=== PATIENT | male | born 1965 | race Caucasian/White ===

== ENCOUNTER → 2021-04-14 09:19 | Outpatient (CLI) | payer OTHER, SELFPAY ==
[2021-04-14 18:41] LABS: Add Manual Diff / Slide Review NO; Basophils Absolute Auto 0 /uL (0-100); Basophils Percent Auto 0.4 % (0-2); Eosinophils Absolute Auto 100 /uL (0-450); Eosinophils Percent Auto 1.2 % (2-4); Hematocrit 40.7 % (41-53); Hemoglobin 13.9 g/dL (13.5-17.5); Lymphocytes Absolute Auto 3000 /uL (1100-4500); Mean Corpuscular HGB Conc 34.1 % (30-36); Mean Corpuscular Hemoglobin 31.8 PG (26-34); Mean Corpuscular Volume 93.2 fL (80-100); Monocytes Absolute Auto 400 /uL (0-900); Monocytes Percent Auto 5.6 % (3-14); Neutrophils Absolute Auto 3000 /uL (1500-7000); Neutrophils Percent Auto 46.8 % (50-75); Platelet Count 188 X10^3/uL (150-400); Red Blood Cell Count 4.37 X10^6/uL (4.5-5.9); Red Cell Distribution Width 12.9 % (11.6-14.8); White Blood Cell Count 6.5 X10^3/uL (4.5-11.0)
[2021-04-14 19:12] LABS: Alanine Aminotransferase 26 IU/L (<50); Albumin 4.3 g/dL (3.5-5.0); Albumin Globulin Ratio 1.3 (1.0-2.8); Alkaline Phosphatase 67 U/L (38-126); Aspartate Aminotransferase 27 IU/L (17-59); BUN Creatinine Ratio 15.5 (6-22); Bilirubin Total 1.2 mg/dL (0.2-1.3); Blood Urea Nitrogen 16 mg/dL (9-20); Calcium 9.5 mg/dL (8.4-10.2); Carbon Dioxide 25 mmol/L (22-32); Chloride 108 mmol/L (98-107); Cholesterol 222 mg/dL (140-199); Estimated Glomerular Filt Rate > 60.0 mL/min (>60); Globulin 3.2 g/dL (1.7-4.1); Glucose 101 mg/dL (70-100); HDL Cholesterol 71 mg/dL (40-60); HEMOLYSIS < 15 (0-50); LDL Cholesterol Calculated 139 mg/dL (<100); Potassium 4.4 mmol/L (3.4-5.1); Sodium 140 mmol/L (137-145); Total Protein 7.5 g/dL (6.3-8.2); Triglycerides 62 mg/dL (35-150)
[2021-04-14 19:40] LABS: Prostate Specific Antigen 1.13 ng/mL (0.10-4.00)
== END ==
PROVIDERS: PCP Family Medicine; Visit Provider Family Medicine
DX: Z00.00 Encounter for general adult medical examination without abnormal findings (principal)
CPT/HCPCS: 80053; 80061; 84153; 85025

== ENCOUNTER 2022-03-31 10:17 | Emergency (ER) | payer OTHER, SELFPAY ==
[2022-03-31 10:47] VITALS: BP 106/63; PULSE 96; RESP 18; TEMP 37; O2SAT 98; BMI 29.5
[2022-03-31 10:59] VITALS: BP 106/63; PULSE 96; RESP 18; O2SAT 99
--- NOTE | 2022-03-31 13:03 | ED.BACK ---
HPI - Back Pain/Injury <CHIP García - Last Filed: 03/31/22 18:52> General Chief Complaint: Back Pain/Injury Stated Complaint: Back spasms Time Seen by Provider: 03/31/22 12:58 Source: patient and EMS History of Present Illness HPI Narrative: This is a 56-year-old gentleman who presents to the emergency department via EMS from [facility] for severe back spasms that started last night when he lifted up over his head in a twisting motion. He states that he immediately felt sharp pain and fell down to the ground. Try to rest overnight with ibuprofen and states that he had spasms all night long. He has severe pain and any movement triggers worsening spasms. He states it is worse on the left than the right. States he could not feel himself void this morning when he did. He denies numbness to his penis or anus, endorses that he has rectal tone. He states that he is had history of cervical spine fusion in the past and shoulder surgery but no other problems with his low back. He is not anticoagulated, states that he is otherwise healthy, his primary care provider is Dr. Alston. Related Data Previous Rx's Medication Instructions Recorded ketorolac 10 mg tablet 10 mg PO Q8H PRN pain #20 tabs 03/31/22 lidocaine 5 % topical patch 1 patch topical DAILY PRN back 03/31/22 (Lidoderm) pain #30 ea methocarbamol 750 mg tablet 750 mg PO Q8H PRN spasms #30 tabs 03/31/22 oxycodone-acetaminophen 5 mg-325 1 tab PO Q8H PRN pain #20 tabs 03/31/22 mg tablet (Percocet) polyethylene glycol 3350 17 17 g PO DAILY PRN soft stools #238 03/31/22 gram/dose oral powder (Miralax) grams prednisone 50 mg tablet 50 mg PO DAILY #10 tabs 03/31/22 Allergies Allergy/AdvReac Type Severity Reaction Status Date / Time No Known Drug Allergies Allergy Verified 04/02/21 09:24 Review of Systems <CHIP García - Last Filed: 03/31/22 18:52> Review of Systems ROS Unobtainable: All systems reviewed & are unremarkable except as noted in HPI and below Patient History <CHIP García - Last Filed: 03/31/22 18:52> Medical History Anemia GERD (gastroesophageal reflux disease) (~2020) Well adult exam Surgical History Anesthesia History of elbow surgery History of hand surgery History of neck surgery History of shoulder surgery Family History Mother COPD (chronic obstructive pulmonary disease) Social History Smoking Status: Former smoker Smoking Status: Former smoker Exam <CHIP García - Last Filed: 03/31/22 18:52> Narrative Exam Narrative: Reviewed vitals signs and nursing notes. General: cooperative, comfortable, in acute distress spasms in his whole back triggered movement, well groomed HEENT: symmetrical facial expressions, moist mucous membranes Cardiovascular: regular rate and rhythm, no peripheral edema, warm extremities Respiratory: normal effort, able to speak in complete sentences, without wheezing, stridor, or abnormal breath sounds. No retractions or tachypnea. GI: abdomen soft, nontender to palpation, nondistended, without masses, rebound tenderness or exquisite tenderness with exam. MSK: moves all extremities, neurovascularly intact, no weakness, normal tone, patient has exquisite tenderness and bilateral spasms to his back with any movement, weak dorsiflexion, groin numbness to palpation anteriorly, patient does have rectal tone tender over his L4-5 region diffusely Skin: brisk capillary refill, without pallor or erythema Neuro: normal speech and cognition, A&O x3, patient was able to stand and ambulate short distance after medications were given. Psych: mental status is grossly normal, congruent mood, normal affect, pleasant and cooperative Initial Vital Signs Initial Vital Signs: Vital Signs Temperature 98.6 F 03/31/22 10:47 Pulse Rate 96 H 03/31/22 10:47 Respiratory Rate 18 03/31/22 10:47 Blood Pressure 106/63 03/31/22 10:47 Pulse Oximetry 98 03/31/22 10:47 Oxygen Delivery Method 03/31/22 10:47 <Zenia Coelho DO - Last Filed: 03/31/22 19:20> Initial Vital Signs Initial Vital Signs: Vital Signs Temperature 98.6 F 03/31/22 10:47 Pulse Rate 96 H 03/31/22 10:47 Respiratory Rate 18 03/31/22 10:47 Blood Pressure 106/63 03/31/22 10:47 Pulse Oximetry 98 03/31/22 10:47 Oxygen Delivery Method 03/31/22 10:47 Course <CHIP García - Last Filed: 03/31/22 18:52> Orders Ordered: ED Orders 03/31/22 13:05 MR lumbar spine wo con Stat Discontinued Medications Acetaminophen (Acetaminophen 325 Mg Tablet) 975 mg PO NOW ONE Stop: 03/31/22 13:03 Last Admin: 03/31/22 14:06 Dose: 975 mg Documented By: AND[facility] Diazepam (Diazepam 10 Mg/2 Ml Syringe) 5 mg IV NOW ONE Stop: 03/31/22 13:03 Last Admin: 03/31/22 14:05 Dose: 5 mg Documented By: ANDERSON Hydromorphone HCl (Hydromorphone 0.5 Mg Inj) 0.5 mg IV NOW ONE Stop: 03/31/22 13:03 Last Admin: 03/31/22 14:05 Dose: 0.5 mg Documented By: AND[facility] Hydromorphone HCl (Hydromorphone 0.5 Mg Inj) 0.5 mg IV NOW ONE Stop: 03/31/22 14:58 Last Admin: 03/31/22 15:57 Dose: 0.5 mg Documented By: ANDERSON Ketorolac Tromethamine (Ketorolac 30 Mg/Ml Vial) 15 mg IV NOW ONE Stop: 03/31/22 13:03 Last Admin: 03/31/22 14:05 Dose: 15 mg Documented By: ANDERSON Lidocaine (Lidocaine Patch 1 Each Adh..Patch) 1 each TOP NOW ONE Stop: 03/31/22 13:03 Last Admin: 03/31/22 14:04 Dose: 1 each Documented By: ANDERSON Methocarbamol (Methocarbamol 500 Mg Tablet) 750 mg PO NOW ONE Stop: 03/31/22 14:58 Last Admin: 03/31/22 15:56 Dose: 750 mg Documented By: ANDERSON Methylprednisolone (Methylprednisolone 125 Mg/2 Ml Vial) 125 mg IV NOW ONE Stop: 03/31/22 15:27 Last Admin: 03/31/22 15:46 Dose: 125 mg Documented By: ANDERSON Oxycodone/Acetaminophen (Oxycodone/Acetaminophen 5/325 Tablet) 1 tab PO NOW ONE Stop: 03/31/22 15:28 Last Admin: 03/31/22 15:57 Dose: 1 tab Documented By: ANDERSON Vital Signs Vital signs: Vital Signs - 8 hr 03/31/22 18:21 Pulse Rate 77 Respiratory Rate 18 Blood Pressure 154/78 H Pulse Oximetry 99 Oxygen Delivery Method Room Air <Zenia Coelho DO - Last Filed: 03/31/22 19:20> Orders Ordered: ED Orders 03/31/22 13:05 MR lumbar spine wo con Stat Discontinued Medications Acetaminophen (Acetaminophen 325 Mg Tablet) 975 mg PO NOW ONE Stop: 03/31/22 13:03 Last Admin: 03/31/22 14:06 Dose: 975 mg Documented By: [facility] Diazepam (Diazepam 10 Mg/2 Ml Syringe) 5 mg IV NOW ONE Stop: 03/31/22 13:03 Last Admin: 03/31/22 14:05 Dose: 5 mg Documented By: ANDERSON Hydromorphone HCl (Hydromorphone 0.5 Mg Inj) 0.5 mg IV NOW ONE Stop: 03/31/22 13:03 Last Admin: 03/31/22 14:05 Dose: 0.5 mg Documented By: ANDERSON Hydromorphone HCl (Hydromorphone 0.5 Mg Inj) 0.5 mg IV NOW ONE Stop: 03/31/22 14:58 Last Admin: 03/31/22 15:57 Dose: 0.5 mg Documented By: ANDERSON Ketorolac Tromethamine (Ketorolac 30 Mg/Ml Vial) 15 mg IV NOW ONE Stop: 03/31/22 13:03 Last Admin: 03/31/22 14:05 Dose: 15 mg Documented By: ANDERSON Lidocaine (Lidocaine Patch 1 Each Adh..Patch) 1 each TOP NOW ONE Stop: 03/31/22 13:03 Last Admin: 03/31/22 14:04 Dose: 1 each Documented By: ANDERSON Methocarbamol (Methocarbamol 500 Mg Tablet) 750 mg PO NOW ONE Stop: 03/31/22 14:58 Last Admin: 03/31/22 15:56 Dose: 750 mg Documented By: ANDERSON Methylprednisolone (Methylprednisolone 125 Mg/2 Ml Vial) 125 mg IV NOW ONE Stop: 03/31/22 15:27 Last Admin: 03/31/22 15:46 Dose: 125 mg Documented By: ANDERSON Oxycodone/Acetaminophen (Oxycodone/Acetaminophen 5/325 Tablet) 1 tab PO NOW ONE Stop: 03/31/22 15:28 Last Admin: 03/31/22 15:57 Dose: 1 tab Documented By: ANDERSON Vital Signs Vital signs: Vital Signs - 8 hr 03/31/22 18:21 Pulse Rate 77 Respiratory Rate 18 Blood Pressure 154/78 H Pulse Oximetry 99 Oxygen Delivery Method Room Air MDM - Back Pain/Injury <Chanel Allison, [facility] - Last Filed: 03/31/22 18:52> Imaging Data Lumbar MRI: Radiologist's Impression: PROCEDURE:? MR LUMBAR SPINE WO CON ? INDICATIONS:? Groin paresthesia, for dorsiflexion, disc injury? ? TECHNIQUE:? Noncontrast sagittal T1 spin echo and T2 fast echo, sagittal STIR, and T2 fast spin echo through the lumbar spine.? In cases with scoliosis, additional coronal T2 fast spin echo may be performed.? ? COMPARISON:? None. ? FINDINGS:? Disc desiccation and disc height loss at L3-L4 with diffuse disc bulge flattening the ventral thecal sac but without displacement of the descending L4 nerve roots in both subarticular zones.? No neural foraminal stenosis. ? Disc desiccation and disc height loss at L4-L5 with diffuse disc bulge and a superimposed disc extrusion spanning the full lateral with of the spinal canal.? Disc material displaces and likely impinges upon the descending bilateral L5 nerve roots in both subarticular zones, left greater than right.? Foraminal components of the disc material and facet hypertrophy combine to produce mild bilateral neural foraminal narrowing. ? No significant degenerative disc changes at the remaining levels.? Normal position and appearance of the conus.? Regional soft tissues normal.? Normal lumbar vertebral body height and alignment.? No suspicious focal marrow signal abnormality or bone marrow edema. ? ? IMPRESSION:? Suspected bilateral descending L5 nerve root impingement within the subarticular zones at the L4-L5 level due to disc extrusion. ? ?Dictated by: Amrik Carrillo M.D. on 03/31/2022 at 14:19 ? ? Approved by: Amrik Carrillo M.D. on 03/31/2022 at 14:21 ? [facility] Narrative Medical decision making narrative: Chief Complaint: Back spasms and injury Differential diagnoses include but are not limited to: acute fracture, cauda equina pyelonephritis, degenerative joint and or disc disease,, cauda equina , AAA, viscus perforation, osteomyelitis or epidural abscess, disc injury/herniation w/radiculopathy, degenerative arthritis, spinal stenosis, trauma, ligamental injury, paraspinal or other muscular strain, chronic pain, osteoarthritis, and critical cord compression. Suspect likely musculoskeletal etiology strain/sprain,/acute exacerbation of chronic low back pain. Patient's straight leg raise test was positive. No back pain red flags on history or physical. No history of IV substance use, or bony tenderness to palpation, no trauma, no bony tenderness to palpation , afebrile, no CVAT, no urinary symptoms. No bowel or urinary incontinence or retention, no saddle anesthesia, no new/worsening distal weakness, decreased reflexes or foot drop. Pt is nontoxic appearing. Patient has soft tissue tenderness to palpation. Pt is neurovascularly intact distally, afebrile, without immunosuppression or evidence of infection, peritoneal signs, hypertensive crisis, incontinence, or menengial signs. I have reviewed the patient's vital signs and nursing notes as well as prior records if available. Lab test results independently reviewed, pertinent findings: Independently reviewed imaging including: Lumbar MRI, results below Clinical decision rules or scores evaluated: Course of care and re-evaluations: 1300 I saw the patient and he was having recurrent back spasms triggered by any movement, poor dorsiflexion in the left foot, groin paresthesia, concerning for cauda equina, critical cord compression, disc injury/herniation, nerve compression 1400 I reassessed patient after he came back from MRI, has not received his pain medication, he reports that he is doing okay without any movement but the spasms are triggered without moving sometimes. Asked if nursing could give his medications and do the shortly 1500 I reassessed the patient, he is feeling much better, states that movement still triggers exacerbation of pain and spasm in his back. He states that MRI was very painful but he tolerated it okay. MRI radiology report shows bilateral descending L5 nerve root impingement with the subarticular zones at the L4-L5 level due to disc extrusion. Disc dissection and disc height loss at L4-L5 with diffuse disc bulge and superimposed disc extrusion spanning the full lateral with of the spinal canal. Disc material displaces and likely impinges upon the descending bilateral L5 nerve roots in both subarticular zones greater on the left than the right. Foraminal component of material facet hypertrophy produce mild bilateral Neuro foraminal narrowing Independent consultations with: Elena Fernandez 15:[address] [place] [address] Fernandez at 15:30, he recommends patient make an appointment and follow-up in a week at [facility]. States that this is likely not surgical, recommends pain control, rest, states that a brace is not necessary. Recommend steroids for inflammation and further pain control.. I shared this with the patient, he will try the medications and see if this helps, will have a trial ambulation in a while after he rests. 1700 patient states that he feels much better, was able to stand and ambulate a short distance, his spasms are under control this time patient denies numbness or tingling, is able to void. He states that he thinks that he will be able to go home with this pain control. His is on the way here from the [facility] to pick him up. He understands to follow-up at [facility] for his L5 nerve compression related to disc injury. He will be treated with, NSAIDs, prednisone with a taper, opioid medications, muscle relaxers, topical lidocaine patches to help with his pain. Strict precautions to rest and avoid exertional activity and exacerbation of this pain. Patient states understanding, he will follow-up with his primary care provider as well for ongoing needs and will return to the emergency department for weakness, numbness tingling, inability to void or incontinence, or fever with chills. Shared decision making: All decisions made with the patient regarding plan of care Patient's symptoms improved over duration of stay with above-stated therapies. Social considerations that may affect disposition: None Questions are addressed and there is agreement with the plan and for follow-up. Patient is appropriate for outpatient management. MIPS: This encounter doesn't have any diagnosis' associated with MIPS criteria. Discharge Plan Departure Patient Disposition: Home Clinical Impression: Injury of spinal nerve root at L5 level Qualifiers: Encounter type: initial encounter Qualified Code(s): S34.21XA - Injury of nerve root of lumbar spine, initial encounter Instructions: Herniated Disc, Lumbar Radiculopathy Activity Restrictions/Additional Instructions: *You have been diagnosed with lumbar disc injury with compression on the nerve root at L5 without fracture, or other emergent finding on the MRI. No vascular injury or spinal cord compression. Please eat food and drink water with your medications, please take a stool softener so that you do not become constipated have worsening pain while trying to have bowel movements. Please come back to the emergency department if you experience incontinence of bowel or bladder, urinary retention in the inability to void, worsening numbness or pain that you can not manage at home. Please schedule an appointment at [facility] for urgent follow-up. I consulted with Dr. Fernandez today in the emergency department on your behalf. You can make an appointment with any provider that is there to see that day. Thank you for your patients today, I am glad that you are feeling better. *What to do: *Please continue to take your regular medications as directed. [x ] New medication prescriptions sent to your pharmacy: [[facility] ] [ ] New medication written as a paper prescription [ ] No new medications given *Please follow up with your primary care provider in 2-3 days, call for an appointment. Let them know you were seen in the Emergency Department and that we asked that you be seen for follow-up. We will electronically transmit a record of today's note if your PCP is in our system *If you do not have a primary care provider please contact [phone] to establish care with one of the [facility] primary care providers. *Return to Emergency Department if you should have any new, worsening, or concerning symptoms, such as [fever greater than 101F, chills, worsening pain, persistent vomiting or other bothersome symptoms]. Prescriptions: New methocarbamol 750 mg tablet 750 mg PO Q8H PRN (Reason: spasms) Qty: 30 0RF prednisone 50 mg tablet 50 mg PO DAILY Qty: 10 0RF Rx Instructions: Please take 50 mg for the 1st 4 days and then break in half and take 25 for the remainder for a total of at least 7 days and taper down as needed. lidocaine [Lidoderm] 5 % adhesive patch,medicated 1 patch topical DAILY PRN (Reason: back pain) Qty: 30 0RF Rx Instructions: leave on most painful area for up to 12 hrs oxycodone-acetaminophen [Percocet] 5-325 mg tablet 1 tab PO Q8H PRN (Reason: pain) Qty: 20 0RF polyethylene glycol 3350 [Miralax] 17 gram/dose powder 17 g PO DAILY PRN (Reason: soft stools) Qty: 238 0RF ketorolac 10 mg tablet 10 mg PO Q8H PRN (Reason: pain) Qty: 20 0RF Referrals: [facility] [Provider Group] - As soon as possible Prashanth Alston DO [Primary Care Provider] - Stand Alone Forms: Patient Portal/API <Zenia Coelho DO - Last Filed: 03/31/22 19:20> Cosign ED Attending Coscarlitosature Attestation: I was immediately available in the department for consultation. Documentation has been reviewed.
--- NOTE | 2022-03-31 13:05 | DI.MRI.S_ITS ---
PROCEDURE: MR LUMBAR SPINE WO CON INDICATIONS: Groin paresthesia, for dorsiflexion, disc injury? TECHNIQUE: Noncontrast sagittal T1 spin echo and T2 fast echo, sagittal STIR, and T2 fast spin echo through the lumbar spine. In cases with scoliosis, additional coronal T2 fast spin echo may be performed. COMPARISON: None. FINDINGS: Disc desiccation and disc height loss at L3-L4 with diffuse disc bulge flattening the ventral thecal sac but without displacement of the descending L4 nerve roots in both subarticular zones. No neural foraminal stenosis. Disc desiccation and disc height loss at L4-L5 with diffuse disc bulge and a superimposed disc extrusion spanning the full lateral with of the spinal canal. Disc material displaces and likely impinges upon the descending bilateral L5 nerve roots in both subarticular zones, left greater than right. Foraminal components of the disc material and facet hypertrophy combine to produce mild bilateral neural foraminal narrowing. No significant degenerative disc changes at the remaining levels. Normal position and appearance of the conus. Regional soft tissues normal. Normal lumbar vertebral body height and alignment. No suspicious focal marrow signal abnormality or bone marrow edema. IMPRESSION: Suspected bilateral descending L5 nerve root impingement within the subarticular zones at the L4-L5 level due to disc extrusion. Dictated by: Amrik Carrillo M.D. on 03/31/2022 at 14:19 Approved by: Amrik Carrillo M.D. on 03/31/2022 at 14:21
[2022-03-31] MEDS: LIDOCAINE PATCH 1 EACH ADH..PATCH TOP (14:04)
[2022-03-31] MEDS: KETOROLAC 30 MG/ML VIAL 15 MG IV (14:05)
[2022-03-31] MEDS: diazePAM 10 MG/2 ML SYRINGE 5 MG IV (14:05)
[2022-03-31] MEDS: HYDROMORPHONE 0.5 MG INJ IV ×2 (14:05→15:57)
[2022-03-31] MEDS: ACETAMINOPHEN 325 MG TABLET 975 MG PO (14:06)
[2022-03-31] MEDS: methylPREDNISolone 125 MG/2 ML VIAL IV (15:46)
[2022-03-31] MEDS: methocarbamoL 500 MG TABLET 750 MG PO (15:56)
[2022-03-31] MEDS: OXYCODONE/ACETAMINOPHEN 5/325 TABLET 1 TAB PO (15:57)
[2022-03-31 18:21] VITALS: BP 154/78; PULSE 77; RESP 18; O2SAT 99
== END 2022-03-31 18:38 | disposition home or self-care (01) ==
PROVIDERS: Emergency Provider Nurse Practitioner Critical Care Medicine; PCP Family Medicine
DX: S34.21XA Injury of nerve root of lumbar spine, initial encounter (principal); X50.1XXA Overexertion from prolonged static or awkward postures, initial encounter
CPT/HCPCS: 72148; 96374; 96375; 96376; 99284; J1170; J1885; J2930; J3360

== ENCOUNTER → 2022-07-04 09:47 | Outpatient (CLI) | payer OTHER, SELFPAY ==
[2022-07-04 19:35] LABS: Add Manual Diff / Slide Review NO; Basophils Absolute Auto 100 /uL (0-100); Basophils Percent Auto 0.7 % (0-2); Eosinophils Absolute Auto 100 /uL (0-450); Eosinophils Percent Auto 1.4 % (2-4); Hematocrit 40.9 % (41-53); Hemoglobin 14.1 g/dL (13.5-17.5); Lymphocytes Absolute Auto 3000 /uL (1100-4500); Lymphocytes Percent Auto 41.9 % (25-40); Mean Corpuscular HGB Conc 34.5 % (30-36); Mean Corpuscular Hemoglobin 32.3 PG (26-34); Mean Corpuscular Volume 93.7 fL (80-100); Monocytes Absolute Auto 500 /uL (0-900); Monocytes Percent Auto 6.6 % (3-14); Neutrophils Absolute Auto 3600 /uL (1500-7000); Neutrophils Percent Auto 49.4 % (50-75); Platelet Count 192 X10^3/uL (150-400); Red Blood Cell Count 4.36 X10^6/uL (4.5-5.9); Red Cell Distribution Width 13.1 % (11.6-14.8); White Blood Cell Count 7.3 X10^3/uL (4.5-11.0)
[2022-07-04 19:39] LABS: HEMOLYSIS < 15 (0-50)
[2022-07-04 19:48] LABS: Alanine Aminotransferase 32 IU/L (<50); Albumin 4.3 g/dL (3.5-5.0); Albumin Globulin Ratio 1.3 (1.0-2.8); Alkaline Phosphatase 70 U/L (38-126); Aspartate Aminotransferase 28 IU/L (17-59); BUN Creatinine Ratio 17.8 (6-22); Bilirubin Total 2.3 mg/dL (0.2-1.3); Blood Urea Nitrogen 16 mg/dL (9-20); Calcium 9.1 mg/dL (8.4-10.2); Carbon Dioxide 22 mmol/L (22-32); Chloride 107 mmol/L (98-107); Cholesterol 247 mg/dL (140-199); Estimated Glomerular Filt Rate > 60 mL/min (>60); Globulin 3.4 g/dL (1.7-4.1); Glucose 97 mg/dL (70-100); HDL Cholesterol 75 mg/dL (40-60); LDL Cholesterol Calculated 160 mg/dL (<100); Potassium 4.1 mmol/L (3.4-5.1); Sodium 137 mmol/L (137-145); Total Protein 7.7 g/dL (6.3-8.2); Triglycerides 60 mg/dL (35-150)
[2022-07-05 13:49] LABS: HEMOLYSIS < 15 (0-50); Iron 142 ug/dL (49-181)
[2022-07-05 14:10] LABS: Percent Iron Saturation 53 % (20-50); Total Iron Binding Capacity 268 ug/dL (261-462); Transferrin 225 mg/dL (206-381)
[2022-07-05 15:50] LABS: Prostate Specific Antigen Scrn 1.59 ng/mL (0.1-4.0)
[2022-07-05 15:55] LABS: Ferritin 157 ng/mL (18-464)
[2022-07-05 16:09] LABS: Vitamin B12 439 pg/mL (239-931)
== END ==
PROVIDERS: PCP Physician Assistant; Visit Provider Physician Assistant
DX: Z12.5 Encounter for screening for malignant neoplasm of prostate (principal); E78.5 Hyperlipidemia, unspecified; D64.9 Anemia, unspecified
CPT/HCPCS: 80053; 80061; 82607; 82728; 83540; 83550; 85025; G0103